=== PATIENT | male | born 1965 | race Caucasian/White ===

== ENCOUNTER 2018-02-05 20:45 | Emergency (ER) | payer SELFPAY ==
[~2018-02-05] VITALS: Ht 180.3 cm; Wt 72.7 kg
[~2018-02-05 20:45] MED LIST: CLIN1CAP6 PO
[2018-02-05 21:24] VITALS: BP 144/82; PULSE 93; RESP 20; TEMP 97.8; O2SAT 96
[2018-02-05] MEDS ORDERED: SULFAMETHOXAZOLE-TRIMETHOPRIM DS 800-160 MG TAB PO ONE (23:15)
[2018-02-05] MEDS ORDERED: CEPHALEXIN MONOHYDRATE 500 MG CAP PO ONE (23:15)
[2018-02-05] MEDS ORDERED: CEPH-460 PO (23:34)
[2018-02-05] MEDS ORDERED: BACT800T5 PO (23:34)
[2018-02-05] MEDS ORDERED: PERC5TAB12 PO (23:34)
--- NOTE | 2018-02-05 23:35 | PD ---
HPI Chief Complaint: Skin Problem Time Seen by Provider: 22:59 Travel History International Travel<30 days: No Contact w/Intl Traveler<30days: No Traveled to known affect area: No History of Present Illness HPI Patient is a 52-year-old male presenting to emergency department for evaluation of an abscess to his abdomen. He states it started 2-3 days ago, he attempted to pop it last night. He denies any fever, chills, nausea, vomiting, abdominal pain. He reports a history of the same. He denies any IV drug use. Onset was gradual,, symptoms are moderate in nature. There are no alleviating factors. Pain is exacerbated by rubbing of his clothing. PFSH Past Medical History Blood Disorders: No Heart Rhythm Problems: No Cancer: No Cardiovascular Problems: Yes High Cholesterol: No Chest Pain: Yes Congestive Heart Failure: No Cerebrovascular Accident: No Diminished Hearing: No Endocrine: No Gastrointestinal Disorders: Yes (GASTRIC REFLUX) GERD: Yes Genitourinary: No Headaches: Yes Hypertension: No Musculoskeletal: No Neurologic: Yes Psychiatric: No Reproductive: No Respiratory: No Migraines: No Myocardial Infarction: No Seizures: No Tetanus Vaccination: < 5 Years Past Surgical History Surgical History: No Previous Surgery AICD: No Arteriovenous Shunt: No Body Medical Devices: EPISODES OF CHEST PAIN; HAS HAD TESTS FOR SAME Insulin Pump: No Joint Replacement: No Pacemaker: No Social History Alcohol Use: Yes (USUALLY 6 PK BEER WEEKLY) Tobacco Use: Yes (2 PPD) Substance Use: No Allergies-Medications (Allergen,Severity, Reaction): Coded Allergies: *MDRO Multi-Drug Resistant Organism (Verified Allergy, Unknown, 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 Presenting in no acute distress. SKIN: Warm and dry. 4 cm x 4 cm area of induration to his lower abdomen just inferior to the umbilicus. There is a 1 cm ulceration in the center. Exudate noted. No foul odor HEAD: Normocephalic. EYES: No scleral icterus. No injection or drainage. NECK: Supple, trachea midline. No JVD or lymphadenopathy. CARDIOVASCULAR: Regular rate and rhythm without murmurs, gallops, or rubs. RESPIRATORY: Breath sounds equal bilaterally. No accessory muscle use. GASTROINTESTINAL: Abdomen soft, non-tender, nondistended. MUSCULOSKELETAL: No cyanosis, or edema. BACK: Nontender without obvious deformity. No CVA tenderness. Data Data Last Documented VS Vital Signs Date Time Temp Pulse Resp B/P (MAP) Pulse Ox O2 Delivery O2 Flow Rate FiO2 02/05/18 21:24 97.8 93 20 144/82 (102) 96 Orders Orders Sulfamet-Trimeth Ds 800-160 Mg (Bactrim (02/05/18 23:15) Cephalexin (Keflex) (02/05/18 23:15) Wound Culture And Gram Stain (02/05/18 23:19) [facility] [place] Medical Decision Making Medical Screen Exam Complete: Yes Emergency Medical Condition: Yes Interpretation(s) Vital Signs Date Time Temp Pulse Resp B/P (MAP) Pulse Ox O2 Delivery O2 Flow Rate FiO2 02/05/18 21:24 97.8 93 20 144/82 (102) 96 Differential Diagnosis Abscess versus cellulitis versus folliculitis versus other Narrative Course Patient is a 52-year-old well-appearing male. Presenting for evaluation of an abscess to his abdomen. Please see procedure report for I&D. Patient's vital signs are stable, wound culture ordered and pending. Patient was given first dose of antibiotics in the emergency department. He was advised to return to emergency department 48 hours for reevaluation and to have packing removed. He was advised to return sooner for any new or worsening symptoms. He verbalized understanding of these instructions. Patient stable for discharge. Procedures Procedure Narrative After the risks and benefits were discussed the following procedure was performed: INCISION AND DRAINAGE OF ABSCESS: The area was prepped and was sterilely draped. A subcutaneous wheal of 1 % Xylocaine with a total number 2 mL was used to anesthetize the area. The area was properly anesthetized. A number 11 scalpel was used to make a 1.5 -cm incision across the area of the abscess. Cultures were obtained. The abscess was drained an irrigated with normal saline. Quarter inch iodoform packing was placed in the wound. Sterile dressing applied. Patient advised to have packing removed in two days. Diagnosis Primary Impression: Cellulitis and abscess of other specified site Referrals: Primary Care Physician Patient Instructions: Abscess (GEN), Abscess Follow-up (ED), Abscess Incision and Drainage (DC), General Instructions Additional Instructions: Return to emergency Department in 48 hours to have packing removed and for reevaluation Take medications as directed Keep area clean and dry, covered with nonocclusive dressing. Leave packing in place Change dressing as needed for soiling Return to emergency department immediately for any new or worsening symptoms. Med/Other Pt SpecificInfo: Prescription(s) given Scripts Oxycodone-Acetaminophen (Percocet) 5-325 mg Tab 1 TAB PO Q6H Y for PAIN, #5 TAB 0 Refills Prov: Che Curry 02/05/18 Cephalexin (Keflex) 500 Mg Cap 500 MG PO Q12H for Infection for 10 Days, #20 CAP 0 Refills Prov: Che Curry 02/05/18 Sulfamethoxazole-Trimethoprim (Bactrim DS) 800-160 Mg Tab 1 TAB PO BID for Infection, #20 TAB 0 Refills Prov: Che Curry 02/05/18 Disposition: 01 DISCHARGE HOME Condition: Stable Che Curry Feb 05, 2018 23:35
== END 2018-02-05 23:41 | disposition home or self-care (01) ==
LOC: NEPD 20:45
DX: L02.211 Cutaneous abscess of abdominal wall (principal); L03.311 Cellulitis of abdominal wall; B95.62 Methicillin resistant Staphylococcus aureus infection as the cause of diseases classified elsewhere; Z16.19 Resistance to other specified beta lactam antibiotics; Z16.11 Resistance to penicillins; B95.3 Streptococcus pneumoniae as the cause of diseases classified elsewhere
CPT/HCPCS: 10061; 86403; 87070; 87186; 87205